=== PATIENT | female | born 1990 | race Caucasian/White ===

== ENCOUNTER → 2019-09-13 07:41 | Outpatient (BNVA) | payer MEDICAID, SELFPAY | PROVIDERS: Family Provider Family Medicine; PCP Family Medicine; Visit Provider Psychiatry & Neurology Psychiatry | DX: F60.3 Borderline personality disorder (principal); F33.2 Major depressive disorder, recurrent severe without psychotic features; F41.1 Generalized anxiety disorder; F11.21 Opioid dependence, in remission; F15.21 Other stimulant dependence, in remission | CPT/HCPCS: 99204 ==

== ENCOUNTER 2019-11-15 18:12 | Emergency (ER) | payer MEDICAID, SELFPAY ==
[2019-11-15 18:37] VITALS: BP 206/151; PULSE 75; RESP 16; TEMP 36.6; O2SAT 98; BMI 29.7
[2019-11-15 19:10] VITALS: BP 199/159; PULSE 86; RESP 18
--- NOTE | 2019-11-15 19:12 | ED_ITS ---
HPI - Headache General: Chief Complaint: Headache Stated Complaint: high bp Time Seen by Provider: 11/15/19 19:02 History of Present Illness: HPI Narrative: Patient is an 29-year-old female comes to the ED with headache and elevated blood pressure. Patient states that symptoms started about 3 days ago. She is also complaining of having some dental pain on the upper left jaw. She says dental pain started about 3 days ago and that is when her blood pressure and headache started. She reports the dental pain is 7 out of 10. She says that yesterday her left arm felt numb and tingly but it resolved after an hour. Currently she has no other neurological symptoms. Patient did state that she does have high blood pressure and has a prescription for lisinopril and has not gotten it filled and does not take it. Associated symptoms: Deny chest pain, fever(s), nausea, rash or vomiting Review of Systems Const: Denies: fever(s), chills or fatigue Eyes: Denies: change in vision or eye discomfort ENMT: Denies: throat pain, odynophagia, nasal discharge or nasal congestion Card: Denies: chest pain, palpitations, edema, swelling of feet/ankles, dyspnea on exertion or orthopnea Resp: Denies: dyspnea, productive cough or non-productive cough GI: Denies: abdominal pain, nausea, vomiting, diarrhea, constipation or hematochezia : Denies: flank pain, dysuria or hematuria Musc: Denies: neck pain, back pain or extremity swelling Skin/Breast: Denies: rash or new lesions Neuro: Reports: headache(s); Denies: numbness in extremities or weakness in extremities ON LICENSE OF [facility] ED PFSH: Social History Smoking and tobacco status: never smoked Current gender identity: Female Physical Exam Const: COMMON NORMALS: no acute distress, patient oriented x3 and alert GENERAL APPEARANCE: cooperative, comfortable and anxious HENMT: COMMON NORMALS: normocephalic HEAD & SCALP: normocephalic MOUTH: Normal oral and palatal mucosa present THROAT: posterior oropharynx normal and uvula midline Eye: COMMON NORMALS: Equal, round and reactive pupils present and EOMs intact bilaterally PUPIL: Yes Equal, round and reactive pupils present Neck/C-Spine: COMMON NORMALS: supple GENERAL: Yes normal visual inspection Resp: COMMON NORMALS: normal respiratory effort, No retractions, No use of accessory muscles and clear to auscultation bilaterally AUSCULTATION: clear to auscultation bilaterally Cardio: COMMON NORMALS: regular rate, regular rhythm, S1 normal heart sound present, S2 normal heart sound present, No gallops present (Cardio), No clicks present (Cardio), No murmurs present (Cardio) and Peripheral pulses 2+ throughout RATE: regular rate RHYTHM: regular rhythm HEART SOUNDS: S1 normal heart sound present and S2 normal heart sound present PERIPHERAL PULSES: Peripheral pulses 2+ throughout GI: COMMON NORMALS: Normal to inspection, nondistended, normoactive bowel sounds present, Soft to palpation, non-tender and no masses PALPATION: Yes Soft to palpation : COMMON NORMALS: Yes no CVA tenderness BLADDER/KIDNEY EXAM: Yes no CVA tenderness Back/Pelvis: COMMON NORMALS: no CVA tenderness Extremity: COMMON NORMALS: normal to inspection and no pedal edema Neuro: COMMON NORMALS: patient oriented x3 and moves all extremities SENSORIUM/ORIENTATION: Yes alert Psych: MOOD & AFFECT: Yes anxious Skin: COMMON NORMALS: no rashes or lesions noted GENERAL SKIN EXAM: no rashes or lesions noted and dry skin Course Vital Signs: Vital signs: Vital Signs Temperature 98 F 11/15/19 18:37 Pulse Rate 94 11/15/19 21:45 Respiratory Rate 16 11/15/19 21:45 Blood Pressure 215/151 11/15/19 21:45 Pulse Oximetry 100 11/15/19 21:45 MDM - Headache MDM Narrative: Medical decision making narrative: Patient is a 29-year-old female comes to the ED with a headache and elevated blood pressure. Physical e xam and neuro exam are all normal. No neurological deficits seen. CT head showed no acute findings. I informed patient that she has high blood pressure and I would like to try to get it reduced before discharge. Patient wants to go home now and does not want to be here any longer and is anxious. I discussed with patient the importance of filling her prescription already prescribed lisinopril to help control her blood pressure. patient filled out AMA forms and Discharged. She was told to follow-up with her PCP for reevaluation and to check her blood pressure. Imaging Data^: CT Head: Attestation: I personally reviewed and interpreted this imaging study as follows: Radiologist's impression: [facility] [address] [place] [address] CT Scan Report Signed Patient: Arianna Dyer Unit #: [id number] : 1990 Age/Sex: 29 / F ADM Date: 11/15/19 Loc: ER Room/Bed: Attending Dr: Ordering Provider/Ordering MD: Lalo Lopez Date of Service: 11/15/19 Procedure(s): CT head wo con* [id number] Accession Number(s): [id number] Report Number: [id number] PROCEDURE INFORMATION: Exam: CT Head Without Contrast Exam date and time: 11/15/2019 8:16 PM Age: 29 years old Clinical indication: Headache not specified; Prior surgery; Surgery date: 6+ months; Surgery type: Craniotomy, facial; Patient HX: C/O WRAY, blurred vision, neck pain, HTN TECHNIQUE: Imaging protocol: Computed tomography of the head without contrast. Sagittal and coronal reformatted images were created and reviewed. Radiation optimization: All CT scans at this facility use at least one of these dose optimization techniques: automated exposure control; mA and/or kV adjustment per patient size (includes targeted exams where dose is matched to clinical indication); or iterative reconstruction. COMPARISON: No relevant prior studies available. RADIATION DOSE METRICS: Total DLP (mGy-cm): 759.01 FINDINGS: Brain: No acute intracranial hemorrhage. No acute infarct. No intra-axial or extra-axial masses. Mckenna-white matter differentiation is preserved. No cerebral edema. No extra-axial fluid collections. No midline shift. No evidence for Chiari 1 malformation. Areas of encephalomalacia in the anterior/inferior parafalcine right and left frontal lobes. Ventricles: No hydrocephalus. Bones/joints: Mild left nasal septal deviation. Changes consistent with previous bifrontal craniotomies. Deformities of the right and left frontal bones in the regions of the supraorbital ridges and the frontal sinuses, suggesting posttraumatic change. Sinuses: There is opacification of the right frontal sinus. Mastoid air cells: Visualized mastoid air cells are clear. Orbits: No acute abnormality in the visualized orbits. Soft tissues: No acute abnormality of the extracranial soft tissues. CT/CT head wo con* [id number] IMPRESSION: 1. No acute abnormality of the brain. 2. Areas of encephalomalacia in the anterior/inferior parafalcine right and left frontal lobes. Findings could be postsurgical or posttraumatic in nature. 3. There is opacification of the right frontal sinus. 4. Incidental/nonacute findings are listed in the report. Radiation Dose CTDIVOL = (mGy): DLP = 759.01 (mGy-cm) Dictated By: Martha Camp MD Signed By: Martha Camp MD Signed Date/Time: 11/15/192047 DD/ 41 Discharge Plan Discharge Patient Disposition: Home, Self-Care Clinical Impression: Pain due to dental caries, Hypertensive urgency Headache Qualifiers: Headache type: unspecified Headache chronicity pattern: acute headache Intractability: not intractable Qualified Code(s): R51 - Headache Condition: Stable Prescriptions: New clindamycin HCl 150 mg capsule 300 mg PO QID 7 Days Qty: 56 RF: 0 No Action quetiapine [Seroquel] 50 mg tablet 50 mg PO .HS Qty: 30 RF: 2 duloxetine [Cymbalta] 30 mg capsule,delayed release(DR/EC) 30 mg PO DAILY Qty: 30 RF: 2 Discharge Orders: Discharge Order (Routine); Ordered 11/15/19 Ordered By: Lalo Lopez Referrals: Levar Alvarado MD [Primary Care Provider] - Discharge Diet: Regular Discharge Activity: Resume usual activity Patient Instructions: Dental Caries (Cavities), Hypertension (ED) Activity Restrictions/Additional Instructions: Call your PCP and set up an appointment for reevaluation in the next 7 to 10 days. Take full course of antibiotics as prescribed. Please fill your prescription of lisinopril and start taking to help lower your blood pressure. Also contact a dentist and set up an appointment for an evaluation on your dental pain. Take Tylenol or ibuprofen to help with pain. 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
--- NOTE | 2019-11-15 20:05 | CTR_ITS ---
PROCEDURE INFORMATION: Exam: CT Head Without Contrast Exam date and time: 11/15/2019 8:16 PM Age: 29 years old Clinical indication: Headache not specified; Prior surgery; Surgery date: 6+ months; Surgery type: Craniotomy, facial; Patient HX: C/O WRAY, blurred vision, neck pain, HTN TECHNIQUE: Imaging protocol: Computed tomography of the head without contrast. Sagittal and coronal reformatted images were created and reviewed. Radiation optimization: All CT scans at this facility use at least one of these dose optimization techniques: automated exposure control; mA and/or kV adjustment per patient size (includes targeted exams where dose is matched to clinical indication); or iterative reconstruction. COMPARISON: No relevant prior studies available. RADIATION DOSE METRICS: Total DLP (mGy-cm): 759.01 FINDINGS: Brain: No acute intracranial hemorrhage. No acute infarct. No intra-axial or extra-axial masses. Mckenna-white matter differentiation is preserved. No cerebral edema. No extra-axial fluid collections. No midline shift. No evidence for Chiari 1 malformation. Areas of encephalomalacia in the anterior/inferior parafalcine right and left frontal lobes. Ventricles: No hydrocephalus. Bones/joints: Mild left nasal septal deviation. Changes consistent with previous bifrontal craniotomies. Deformities of the right and left frontal bones in the regions of the supraorbital ridges and the frontal sinuses, suggesting posttraumatic change. Sinuses: There is opacification of the right frontal sinus. Mastoid air cells: Visualized mastoid air cells are clear. Orbits: No acute abnormality in the visualized orbits. Soft tissues: No acute abnormality of the extracranial soft tissues. CT/CT head wo con* [id number] IMPRESSION: 1. No acute abnormality of the brain. 2. Areas of encephalomalacia in the anterior/inferior parafalcine right and left frontal lobes. Findings could be postsurgical or posttraumatic in nature. 3. There is opacification of the right frontal sinus. 4. Incidental/nonacute findings are listed in the report. Radiation Dose CTDIVOL = (mGy): DLP = 759.01 (mGy-cm)
[2019-11-15] MEDS: HYDROcodone-acetaminophen 7.5-325 mg Tablet 1 TAB PO (20:24)
[2019-11-15] MEDS: clindamycin 150 mg Capsule 300 MG PO (20:24)
[2019-11-15] MEDS: hyDROXYzine 25 mg Capsule 50 MG PO (21:42)
[2019-11-15 21:45] VITALS: BP 215/151; PULSE 94; RESP 16; O2SAT 100
== END 2019-11-15 21:49 | disposition home or self-care (01) ==
PROVIDERS: Emergency Provider Physician Assistant; PCP Family Medicine
DX: R51 Headache (principal); K02.9 Dental caries, unspecified; I16.0 Hypertensive urgency
CPT/HCPCS: 12345; 70450; 99281; 99283

== ENCOUNTER → 2020-03-23 15:11 | Outpatient (BNVA) | payer MEDICAID, SELFPAY | PROVIDERS: PCP Family Medicine; Visit Provider Nurse Practitioner Family | DX: Z11.59 Encounter for screening for other viral diseases (principal) | CPT/HCPCS: 87635 ==

== ENCOUNTER → 2020-04-06 08:28 | Outpatient (BNVA) | payer MEDICAID, SELFPAY | PROVIDERS: PCP Family Medicine; Visit Provider Psychiatry & Neurology Psychiatry | DX: F41.1 Generalized anxiety disorder (principal); F33.2 Major depressive disorder, recurrent severe without psychotic features; F60.3 Borderline personality disorder; F11.21 Opioid dependence, in remission; F15.21 Other stimulant dependence, in remission | CPT/HCPCS: 99214 ==

== ENCOUNTER → 2020-06-15 09:51 | Outpatient (BNVA) | payer MEDICAID, SELFPAY | PROVIDERS: PCP Family Medicine; Visit Provider Psychiatry & Neurology Psychiatry | DX: F41.1 Generalized anxiety disorder (principal); F33.2 Major depressive disorder, recurrent severe without psychotic features; F60.3 Borderline personality disorder; F12.20 Cannabis dependence, uncomplicated; F11.21 Opioid dependence, in remission; F15.21 Other stimulant dependence, in remission | CPT/HCPCS: 99213 ==

== ENCOUNTER → 2021-01-22 14:00 | Outpatient (BNVA) | payer MEDICAID, SELFPAY | PROVIDERS: PCP Family Medicine; Visit Provider Psychiatry & Neurology Psychiatry | DX: F41.1 Generalized anxiety disorder (principal); F33.2 Major depressive disorder, recurrent severe without psychotic features; F60.3 Borderline personality disorder; F12.20 Cannabis dependence, uncomplicated; F15.21 Other stimulant dependence, in remission; F11.21 Opioid dependence, in remission | CPT/HCPCS: 99214 ==

== ENCOUNTER → 2021-04-07 11:49 | Outpatient (BNVA) | payer MEDICAID, SELFPAY | PROVIDERS: PCP Family Medicine; Visit Provider Nurse Practitioner Family | DX: Z20.822 Contact with and (suspected) exposure to COVID-19 (principal) | CPT/HCPCS: 87635 ==

== ENCOUNTER 2021-04-11 20:57 | Emergency (ER) | payer MEDICAID, SELFPAY ==
[2021-04-11 21:03] VITALS: BP 217/127; PULSE 107; RESP 20; TEMP 36.3; O2SAT 100; BMI 23.4
[2021-04-11 21:05] VITALS: BP 152/89; PULSE 96; RESP 18; O2SAT 97
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
--- NOTE | 2021-04-11 21:20 | CTR_ITS ---
PROCEDURE INFORMATION: Exam: CT Head Without Contrast Exam date and time: 04/11/2021 9:20 PM Age: 31 years old Clinical indication: Pain; Headache not specified; Prior surgery; Surgery date: 6+ months; Surgery type: Craniotomy, facial; Patient HX: C/O severe WRAY; Additional info: Severe headache TECHNIQUE: Imaging protocol: Computed tomography of the head without contrast. Total images: 205 Radiation optimization: All CT scans at this facility use at least one of these dose optimization techniques: automated exposure control; mA and/or kV adjustment per patient size (includes targeted exams where dose is matched to clinical indication); or iterative reconstruction. COMPARISON: CT head wo con* [id number] 11/15/2019 8:18 PM RADIATION DOSE METRICS: Total DLP (mGy-cm): 742.79 FINDINGS: Brain: No evidence of active or acute intracranial pathologic process, hemorrhage, or trauma. No visible evidence of diffuse cerebral edema or generalized demyelination. No mass effect. No midline shift. Stable bilateral frontal lobe encephalomalacia and gliosis with focal atrophy. Cerebral ventricles: No ventriculomegaly. Paranasal sinuses: Mild chronic ethmoid sinusitis. No visible active paranasal sinus disease within the field of view. Mastoid air cells: Visualized mastoid air cells are well aerated. Bones/joints: Status post right frontal craniotomy. Evidence of status post facial reconstruction within the field of view. Soft tissues: Unremarkable. CT/CT head wo con* [id number] IMPRESSION: No evidence of active or acute intracranial pathologic process, hemorrhage, or trauma. Radiation Dose CTDIVOL = (mGy): DLP = 742.79 (mGy-cm)
[2021-04-11] MEDS: LORazepam 2 mg/mL INJ 1 mL IVP (21:25)
[2021-04-11] MEDS: haloperidol inj 5 mg/mL INJ 1 mL IVP (21:30)
[2021-04-11] MEDS: diphenhydrAMINE 50 mg/mL SDV 1mL IVP (21:35)
[2021-04-11 21:55] LABS: Basophils # 0.1 10^3/uL (0.0-0.1); Basophils % 0.6 %; Eosinophils # 0.4 10^3/uL (0.0-0.8); Eosinophils % 2.2 %; Hematocrit 47.5 % (37.0-47.0); Lymphocytes # 2.3 10^3/uL (0.8-4.8); Lymphocytes % 12.5 %; Mean Corpuscular HGB Conc 31.6 g/dL (30.0-36.0); Mean Corpuscular Hemoglobin 25.7 pg (28.0-34.0); Mean Corpuscular Volume 81.3 fl (81-99); Mean Platelet Volume 10.5 fL (7.4-10.4); Monocytes # 0.7 10^3/uL (0.2-0.9); Monocytes % 4.1 %; Neutrophils # 14.63 10^3/uL (1.8-7.7); Neutrophils % 80.2 %; Nucleated Red Blood Cells % 0 %; Platelet Count 323 10^3/cmm (130-400); Red Blood Count 5.84 10^6/uL (4.1-5.3); Red Cell Distribution Width 12.9 % (12.1-15.1); White Blood Count 18.3 10^3/uL (4.0-10.0)
[2021-04-11 22:01] VITALS: RESP 24; O2SAT 96
[2021-04-11] MEDS: morphine 4 mg/mL SDV 1 mL 2 MG IVP (22:01)
[2021-04-11 22:12] LABS: Alanine Aminotransferase 8 U/L (0-33); Albumin Level 4.5 g/dL (3.5-5.2); Alkaline Phosphatase 107 IU/L (35-105); Blood Urea Nitrogen 4 mg/dL (6-20); C Reactive Protein 20.5 mg/L (0.0-4.9); Calcium 9.2 mg/dL (8.5-10.5); Carbon Dioxide 23 mmol/L (22-29); Chloride 95 mmol/L (98-107); Globulin 3.9 g/dL (1.3-4.6); Glomerular Filtration Rate 118.2 mL/min (90-130); Glucose 124 mg/dL (65-115); Osmolality Calculated 274 mOsm/kg (285-295); Sodium 133 mmol/L (136-145); Total Bilirubin 0.6 mg/dL (0.15-1.2); Total Protein 8.4 g/dL (6.6-8.7)
[2021-04-11 22:16] LABS: Anion Gap 18.2 (5-19); Aspartate Amino Transferase 15 U/L (0-32); Potassium 3.2 mmol/L (3.5-5.1)
[2021-04-11] MEDS: sodium chloride 0.9% 1,000 ML 999 ML IV (23:30)
[2021-04-11 23:46] LABS: Creatine Phosphokinase 62 U/L (26-192)
[2021-04-12] MEDS: naloxone 0.4 mg/ml SDV IVP (00:45)
[2021-04-12] MEDS: ondansetron 2 mg/ML SDV 2 mL 4 MG IVP (01:30)
[2021-04-12 02:27] LABS: Add Urine Microscopic? YES; Bilirubin Urine Neg (Negative); Blood Urine Neg (Negative); Glucose Urine UA Trace (Normal); Ketones Urine Negative (Negative); Leukocyte Esterase Urine Negative (Negative); Nitrate Urine Negative (Negative); Protein Urine 1+ (Negative); Urine Appearance Clear (CLEAR); Urine Color Yellow (Yellow); Urobilinogen Urine Norm (Negative); pH Urine 8 (5-7)
[2021-04-12 02:29] LABS: Sulfosalicylic Acid Urine Positive (Negative)
[2021-04-12 02:30] LABS: Bacteria Urine TRACE /hpf; RBC Urine 0-4 /hpf (0-2); Renal Epithelial Cells Urine 0-4 /hpf
[2021-04-12 02:31] LABS: Add Urine Culture? No
[2021-04-12 02:32] LABS: Amphetamines Screen Urine Positive (Negative); Barbiturates Screen Urine Negative (Negative); Benzodiazepines Screen Urine Negative (Negative); Cocaine Screen Urine Negative (Negative); Opiate Screen Urine Positive (Negative); PCP Screen Urine Negative (Negative); THC Screen Urine Positive (Negative)
[2021-04-12 02:59] VITALS: BP 162/98; PULSE 89; RESP 18; O2SAT 97
[2021-04-12 03:00] VITALS: BP 210/112
[2021-04-12 03:15] VITALS: BP 202/99; PULSE 102; RESP 22; O2SAT 97
[2021-04-12 03:29] VITALS: BP 217/140
[2021-04-12] MEDS: amlodipine 10 mg Tablet PO (03:29)
[2021-04-12] MEDS: cloNIDine 0.1 mg Tablet 0.2 MG PO (03:29)
[2021-04-12 03:43] VITALS: BP 198/96; PULSE 102; RESP 22; O2SAT 97
== END 2021-04-12 03:40 | disposition home or self-care (01) ==
PROVIDERS: Nurse Practitioner Family; Emergency Provider Emergency Medicine; PCP Family Medicine
DX: R51.9 Headache, unspecified (principal); F60.3 Borderline personality disorder; F19.10 Other psychoactive substance abuse, uncomplicated
CPT/HCPCS: 51701; 70450; 80053; 80306; 81001; 82550; 85025; 86140; 96361; 96374; 96375; 99284; J1200; J1630; J2060; J2270; J2310; J2405; J7030